=== PATIENT | female | born 1980 | race Caucasian/White ===

== ENCOUNTER 2018-10-06 23:36 | Emergency (ER) | payer BC ==
--- NOTE | 2018-10-07 00:30 | NUR ---
Pt called in x 3, no answer. Patient left without being seen. No further treatment provided. ER MD aware.
== END 2018-10-07 00:30 | disposition left against medical advice (07) ==
LOC: SED 23:36
DX: R42 Dizziness and giddiness (principal); Z53.21 Procedure and treatment not carried out due to patient leaving prior to being seen by health care provider